=== PATIENT | male | born 1955 | race Caucasian/White ===

== ENCOUNTER 2017-09-19 14:10 | Emergency (ER) | payer BC ==
[~2017-09-19] VITALS: Ht 180.3 cm; Wt 99.8 kg
--- OUTSIDE RECORDS SUMMARY | 2017-09-19 14:12 | XMS REPORT | Clinical Summary ---
Author Author [facility] Organization [facility] Address Unknown Phone Unavailable Care Team Providers Care Grocery Store Clerk Name Role Phone Paige Bell MD PCP Allergies Not on File Current Medications Not on file Active Problems Not on file Encounters Date Type Specialty Care Team Description 01/06/2017 [facility] Rad[facility] Richie Watson MD Kidney stone Encounter 01/06/2017 Transcribe Access Richie Watson MD Kidney stone ( Primary Dx) Orders after 09/18/2016 Social History Tobacco Use Types Packs/Day Years Used Date Never Assessed Sex Assigned at Date Recorded Not on file Last Filed Vital Signs Not on file Plan of Treatment Health Maintenance Due Date Last Done Comments COLON CANCER SCREENING 2005 SHINGRIX VACCINE (#1) 2005 ZOSTER VACCINE 2015 INFLUENZA VACCINE 12/01/2017 Results * XR Kub Kidney Ureter Bladder (01/06/2017 2:10 PM) Specimen Performing Laboratory [facility] [address] [place] [address] Narrative EXAMINATION:XR KUB KIDNEY URETER BLADDER CLINICAL HISTORY:N20.0 Calculus of kidney, n20.0 COMPARISON:None. IMPRESSION: There is no evidence of acute fracture or dislocation. 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 Multiple 2 to 3 mm stones project over the lower pole of the left kidney which are decreased from January 09, 2015. Calcifications in lower pelvis have the appearance of phlebolith. These are unchanged from prior. No definite stones in the expected course of the ureters [id number] Procedure Note Interface, Radiology Results Incoming - 01/06/2017 3:06 PM CDT EXAMINATION: XR KUB KIDNEY URETER BLADDER CLINICAL HISTORY: N20.0 Calculus of kidney, n20.0 COMPARISON: None. IMPRESSION: There is no evidence of acute fracture or dislocation. 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 Multiple 2 to 3 mm stones project over the lower pole of the left kidney which are decreased from January 09, 2015. Calcifications in lower pelvis have the appearance of phlebolith. These are unchanged from prior. No definite stones in the expected course of the ureters [id number] after 09/18/2016 Insurance Payer Benefit Subscriber ID Type Phone Address Plan / Group BCBS BCBS xxxxxxxxxxxx PPO CHOICE PPO/[place] [address]
[2017-09-19] MEDS ORDERED: MECLIZINE HCL 12.5 MG TAB PO ONE (14:30)
[2017-09-19] MEDS ORDERED: ONDANSETRON HCL 4 MG ORAL DISINTEGRATING TAB PO ONE (14:30)
[2017-09-19] MEDS ORDERED: SODIUM CHLORIDE 0.9% 1000ML 1,000 ML ONE ×2 (15:30→16:30)
[2017-09-19] MEDS ORDERED: IPRATROPIUM BROMIDE 0.02% 2.5 ML NEB NEB ONE (15:30)
[2017-09-19] MEDS ORDERED: ALBUTEROL SULF 0.083% NEB SOLN 3 ML NEB NEB ONE (15:30)
[2017-09-19] MEDS ORDERED: CEFTRIAXONE SOD 1 GM VIAL IV ONE (15:30)
[2017-09-19] MEDS ORDERED: METHYLPREDNISOLONE SOD SUCC 125 MG/2ML VIAL IV ONE (16:30)
[2017-09-19 16:49] VITALS: BP 156/95
[2017-09-19] MEDS ORDERED: PROAIR HFA INH8.5 GM INH (16:52)
[2017-09-19] MEDS ORDERED: AZITHROMYCIN250 MG PO (16:52)
[2017-09-19] MEDS ORDERED: PREDNISONE20 MG PO (16:53)
== END 2017-09-19 16:57 | disposition home or self-care (01) ==
LOC: FSED 14:10
DX: R42 Dizziness and giddiness (principal); R05 Cough; R11.2 Nausea with vomiting, unspecified; E86.1 Hypovolemia; J15.9 Unspecified bacterial pneumonia; J44.1 Chronic obstructive pulmonary disease with (acute) exacerbation; I10 Essential (primary) hypertension; G47.30 Sleep apnea, unspecified; F17.210 Nicotine dependence, cigarettes, uncomplicated
CPT/HCPCS: 71046; 80048; 80053; 83880; 85025; 93005; 96374; 99284; J0696; J2930; J7030